=== PATIENT | female | born 1950 | race Hispanic/Latino ===

== ENCOUNTER 2018-03-16 06:24 | Day surgery (SDC) | payer OTHER ==
[2018-03-15 16:27] VITALS: BP 125/69
[2018-03-15 16:32] LABS: BASOPHILS % (AUTO) 1.2 % (0.0-5.0); EOSINOPHILS % (AUTO) 1.8 % (0.0-8.0); HEMATOCRIT 39.4 % (36-48); LYMPHOCYTES % (AUTO) 25.6 % (21.0-51.0); MEAN CORPUSCULAR HEMOGLOBIN 29.9 pg (27.0-33.0); MEAN CORPUSCULAR HGB CONC 34.1 g/dL (32.0-36.0); MEAN CORPUSCULAR VOLUME 87.6 fL (79-99); MONOCYTES % (AUTO) 8.2 % (3.0-13.0); NEUTROPHILS % (AUTO) 63.2 % (40.0-77.0); PLATELET COUNT (AUTO) 167 K/uL (130-400); RED CELL DISTRIBUTION WIDTH 14.1 % (11.0-15.5); WHITE BLOOD COUNT (AUTO) 6.1 K/uL (4.8-10.8)
[2018-03-15 16:40] LABS: CREATININE 0.9 mg/dL (0.5-1.5); POTASSIUM 3.7 mmol/L (3.5-5.1)
[2018-03-16] VITALS (20 sets, daily range): BP systolic 91–167; BP diastolic 61–91
[~2018-03-16] VITALS: Ht 153.7 cm; Wt 69.1 kg
[~2018-03-16 06:24] MED LIST: LISI1TAB11 PO
--- NOTE | 2018-03-16 06:42 | NUR ---
POTENTIAL F OR INFECTION: NO CLIPPING NEEDED TO RIGHT KNEE / LEG, PATIENT SHAVED ON OWN ON 03/15/18> WIPED RIGHT LEG / KNEE WITH AREN PER TAMMIE COLLAZO
--- NOTE | 2018-03-16 07:12 | NUR ---
VALUABLES: CLOTHING, PURSE, ID AND MONEY GIVEN TO GRANDDAUGHTER.
[2018-03-16] MEDS ORDERED: CEFAZOLIN SODIUM 1 GM VIAL IVP ONE (08:00)
[2018-03-16] MEDS ORDERED: LIDOCAINE PF 2% 5ML ABBOJECT ONE (08:38)
[2018-03-16] MEDS ORDERED: DEXAMETHASONE SOD PHOSPHATE 10MG/ML 1ML VIAL ONE ×3 (08:38→08:42)
[2018-03-16] MEDS ORDERED: ONDANSETRON HCL 4 MG/2 ML VIAL ONE (08:39)
[2018-03-16] MEDS ORDERED: NEOSTIGMINE 5MG/5ML SYR IV ONE (08:39)
[2018-03-16] MEDS ORDERED: PROPOFOL 10 MG/ML 20ML VIAL IV ONE (08:39)
[2018-03-16] MEDS ORDERED: GLYCOPYRROLATE 1 MG/5 ML SYRINGE ONE (08:39)
[2018-03-16] MEDS ORDERED: MIDAZOLAM HCL 1 MG/ML 2ML VIAL ONE (08:39)
[2018-03-16] MEDS ORDERED: FENTANYL CITRATE PF 50 MCG/1 ML 2ML VIAL ONE ×2 (08:40→09:57)
[2018-03-16] MEDS ORDERED: ROCURONIUM 10MG/1ML SYR 10 MG/ML ML ONE (08:40)
[2018-03-16] MEDS ORDERED: LIDOCAINE HCL MPF 1% 5ML VIAL ONE (08:43)
[2018-03-16] MEDS ORDERED: PHENYLEPHRINE HCL 10 MG/ML 1ML VIAL IV ONE (09:15)
[2018-03-16] MEDS ORDERED: NAPR-1192 PO (09:59)
[2018-03-16] MEDS ORDERED: CEPH500B PO (09:59)
[2018-03-16] MEDS ORDERED: TYL3 PO (09:59)
[2018-03-16] MEDS ORDERED: MEPERIDINE-PF 25 MG/ML SYG ONE ×2 (10:08→10:19)
== END 2018-03-16 11:40 | disposition home or self-care (01) ==
LOC: DAH 06:24
PROVIDERS: ATTEND Orthopaedic Surgery
DX: S83.231A Complex tear of medial meniscus, current injury, right knee, initial encounter (principal); W18.30XA Fall on same level, unspecified, initial encounter; Y93.9 Activity, unspecified; Y92.89 Other specified places as the place of occurrence of the external cause; Y99.9 Unspecified external cause status; M22.41 Chondromalacia patellae, right knee; I10 Essential (primary) hypertension; Z90.710 Acquired absence of both cervix and uterus; Z68.30 Body mass index [BMI] 30.0-30.9, adult; Z79.899 Other long term (current) drug therapy; Z82.49 Family history of ischemic heart disease and other diseases of the circulatory system
CPT/HCPCS: 29881; 36415; 80048; 85025; 93005; A4218; A4606; A4649 ×2; A4930; A6223; J0690; J1100 ×3; J2001; J2175 ×2; J2250; J2370; J2405; J2704; J2710; J3010 ×2; J3490 ×2